=== PATIENT | female | born 1975 | race Caucasian/White ===

== ENCOUNTER → 2022-02-10 12:56 | Outpatient (CLI) | payer BC, SELFPAY ==
[2022-02-12 04:16] LABS: Candida species Negative (Negative); Gardnerella vaginalis Positive (Negative); Trichomoas vaginalis Negative (Negative)
== END ==
PROVIDERS: PCP Physician Assistant; Visit Provider Physician Assistant
DX: N89.8 Other specified noninflammatory disorders of vagina (principal); O34.40 Maternal care for other abnormalities of cervix, unspecified trimester; Z01.419 Encounter for gynecological examination (general) (routine) without abnormal findings; Z98.890 Other specified postprocedural states
CPT/HCPCS: 87480; 87510; 87660

== ENCOUNTER → 2023-05-23 14:35 | Outpatient (CLI) | payer OTHER, SELFPAY ==
[2023-05-23 19:53] LABS: Alanine Aminotransferase 39 IU/L (<35); Aspartate Aminotransferase 53 IU/L (14-36); Bilirubin Total 0.3 mg/dL (0.2-1.3)
== END ==
PROVIDERS: PCP Physician Assistant
DX: B35.1 Tinea unguium (principal)
CPT/HCPCS: 82247; 84450; 84460

== ENCOUNTER → 2025-08-20 13:39 | Outpatient (CLI) | payer OTHER, SELFPAY ==
[2025-08-20 18:43] LABS: Hematocrit 41.8 % (36-46); Hemoglobin 14.2 g/dL (12.0-16.0); Mean Corpuscular HGB Conc 34.0 % (30-36); Mean Corpuscular Hemoglobin 29.5 PG (26-34); Mean Corpuscular Volume 86.8 fL (80-100); Platelet Count 301 X10^3/uL (150-400)
[2025-08-20 18:56] LABS: HEMOLYSIS 37 (0-50); Iron 93 ug/dL (37-170)
[2025-08-20 19:06] LABS: Percent Iron Saturation 27 % (15-50); Total Iron Binding Capacity 341 ug/dL (265-497); Transferrin 297 mg/dL (206-381)
[2025-08-20 19:17] LABS: Follicle Stimulating Hormone 2.00 mIU/mL
[2025-08-20 19:35] LABS: Ferritin 45 ng/mL (6-137)
[2025-08-20 19:46] LABS: Thyroid Stimulating Hormone 1.88 uIU/mL (0.47-4.68)
== END ==
PROVIDERS: PCP Family Medicine; Visit Provider Family Medicine
DX: N94.6 Dysmenorrhea, unspecified (principal); N92.0 Excessive and frequent menstruation with regular cycle; N92.1 Excessive and frequent menstruation with irregular cycle; Z13.6 Encounter for screening for cardiovascular disorders; Z13.1 Encounter for screening for diabetes mellitus
CPT/HCPCS: 82397; 82728; 83001; 83540; 83550; 84443; 85027

== ENCOUNTER 2025-11-03 07:40 | Day surgery (SDC) | payer OTHER, SELFPAY ==
[2025-10-29 09:29] VITALS: BMI 22.3
[2025-11-03 08:44] VITALS: BP 131/89; PULSE 80; RESP 12; TEMP 36.6; O2SAT 99
[2025-11-03] MEDS: LACTATED RINGERS 1,000 ML 42 ML IV (08:54)
--- NOTE | 2025-11-03 09:33 | PM.HP.IH.1 ---
History of Present Illness History of Present Illness Date Patient Seen: 11/03/25 Time Patient Seen: 09:33 Chief complaint: SDC Narrative: Jigna is a 49-year-old woman here for colon cancer screening. It is her first colonoscopy. No family history of colon cancer. [facility] Surgical History (Updated 10/29/25 @ 09:37 by Alicia Duarte RN) History of loop electrical excision procedure (LEEP) (2007) Social History Smoking Status: Former smoker alcohol intake: current Meds Home Medications and Allergies Home Medications ?Medication ?Instructions ?Recorded ?Confirmed ?Type sodium,potassium,mag sulfates 17.5 See Rx Instructions PO .COMPLEX 09/19/25 11/03/25 Rx gram-3.13 gram-1.6 gram oral soln #354 mL (Suprep Bowel Prep Kit) Allergies Allergy/AdvReac Type Severity Reaction Status Date / Time Sulfa (Sulfonamide AdvReac Unknown Verified 11/03/25 08:36 Antibiotics) Exam Vital Signs (past 8 hours): - 11/03/25 08:44 Temperature 97.8 F Pulse Rate 80 Respiratory Rate 12 Blood Pressure 131/89 Pulse Oximetry 99 Oxygen Delivery Method Room Air Oxygen Delivery Method Room Air Const General: healthy appearing Assessment & Plan Assessment and plan (1) Colon cancer screening: Status: Acute Plan Colonoscopy Time-Based Coding :: [TOTAL MINUTES] spent with patient and on the chart (including review of chart, obtaining history, exam, reviewing outside data, placing orders, documenting exam and treatment plan, and counseling patient) on [DATE]. [employer] Web Application Developer Document charge(s): No
[2025-11-03 10:00] VITALS: BP 106/65; PULSE 66; RESP 22; TEMP 36.3; O2SAT 99
--- NOTE | 2025-11-03 10:02 | PM.OP.COLON ---
Operative Date/Time/Diagnoses Date of procedure: 11/03/25 Time of procedure: 10:02 Pre-op diagnosis: Colon cancer screening Post-op diagnosis: same Procedure & Clinicians Study performed: Colonoscopy Same procedure(s) as scheduled: Yes Surgeon: Emory Carranza Anesthesia Type: MAC +/- Procedure Notes Procedure in detail: Surgeon: Emory Carranza MD Anesthesia: Debbie Rizzo CRNA Procedure: The patient was brought to the endoscopy suite, placed in left lateral decubitus position. The patient was connected to monitoring devices. A time-out was performed. Sedation was administered. Once the patient was adequately sedated, a digital rectal exam was performed and was normal. The scope was then inserted and advanced to the cecum where the appendiceal orifice was identified and photographed. The scope was then slowly withdrawn over greater than 6 minutes. The mucosa was thoroughly inspected. No abnormalities were found. The scope was retroflexed in the rectum. The scope was straightened and removed. The patient was awakened and brought to recovery. Scope withdrawal time: 6 minutes Sedation time: 10 minutes Findings: Normal colon Estimated Blood Loss: 0 Complications: none Post-procedure Recommendations: Colonoscopy in 10 years Disposition: PACU
[2025-11-03 10:08] VITALS: BP 100/67; PULSE 61; RESP 24; O2SAT 98
[2025-11-03 10:11] VITALS: BP 92/66; PULSE 74; RESP 21; O2SAT 99
== END 2025-11-03 10:48 | disposition home or self-care (01) ==
PROVIDERS: PCP Family Medicine; Referring Provider Family Medicine; Visit Provider Surgery
PROC: 0DJD8ZZ Inspection of Lower Intestinal Tract, Via Natural or Artificial Opening Endoscopic (ICD-10-PCS; CPT 45378; principal; 2025-11-03 09:15)
DX: Z12.11 Encounter for screening for malignant neoplasm of colon (principal); Z87.891 Personal history of nicotine dependence
CPT/HCPCS: 45378; J2704; J7120

== ENCOUNTER → 2025-11-03 12:58 | Outpatient (CLI) | payer OTHER, SELFPAY ==
--- NOTE | 2025-11-03 12:59 | DI.MG.S_ITS ---
MM screening mammo BI: 11/03/2025. BI-RADS: 1 CLINICAL: 49-year old female for bilateral screening mammogram. Tyrer-Cuzick lifetime risk of 28.0%. No personal or first-degree family history of breast cancer. Current reported family history of breast cancer: maternal grandmother, maternal aunt and second maternal aunt. PRIOR EXAMS No prior examinations available. MAMMOGRAPHY TECHNIQUE: 2D and 3D (tomosynthesis) digital mammographic views obtained, with additional images as needed for full coverage. Current study was also evaluated with a Computer Aided Detection (CAD) system. DENSITY D. The breasts are extremely dense, which lowers the sensitivity of mammography. MAMMOGRAPHY FINDINGS Bilateral: No suspicious mass, asymmetry, microcalcification, or other abnormality seen. IMPRESSION: * No evidence of malignancy. RECOMMENDATIONS Bilateral * According to the Tyrer-Cuzick Risk Assessment Model, based on the information provided your patient has a greater than 20% lifetime risk for developing breast cancer. Consider supplemental screening with breast MRI and participation in a high risk screening program. * Annual screening mammography. OVERALL ASSESSMENT CATEGORY BI-RADS-1: Negative. The [employer] recommends annual screening mammography beginning at age 40 for women with average risk of breast cancer. ELECTRONICALLY SIGNED: Diya Montano M.D. on 11/17/2025 at 01:34:28 PM PT Interpreting Station ID: [id number]
== END ==
LOC: MAMMO 12:59
PROVIDERS: PCP Family Medicine; Referring Provider Family Medicine; Visit Provider Family Medicine
DX: Z12.31 Encounter for screening mammogram for malignant neoplasm of breast (principal); R92.343 Mammographic extreme density, bilateral breasts; Z80.3 Family history of malignant neoplasm of breast
CPT/HCPCS: 77063; 77067